=== PATIENT | female | born 1960 | race Caucasian/White ===

== ENCOUNTER 2021-01-15 13:46 | Outpatient (CLI) | payer BC, SELFPAY ==
--- NOTE | ~2021-01-15 | MM_ITS ---
EXAMINATION: MM screening [facility] BI w [place] HISTORY: Screening mammogram, family history of breast cancer in her sister. TECHNIQUE: Craniocaudal and mediolateral oblique 3-D tomosynthesis images were obtained and synthetic 2-D images were generated. CAD analysis was submitted and interpreted. COMPARISON: 05/29/2019, 10/11/2012, 07/11/2008 BREAST PARENCHYMAL COMPOSITION: There are scattered areas of fibroglandular density. FINDINGS: There is no evidence of suspicious mass, calcification, or architectural distortion to sugg est malignancy in either breast. There has been no suspicious interval change. IMPRESSION: 1. No mammographic evidence of malignancy. 2. Recommend routine screening mammography in one year. BI-RADS Category 1: Negative Reviewed, dictated and finalized at location A.
--- NOTE | ~2021-01-15 | US_ITS ---
EXAMINATION: US soft tissue LE LT DATE: 01/15/2021 14:20 INDICATION: Localized swelling, mass and lump at the left calf. TECHNIQUE: Multiple grayscale and Doppler ultrasound images of the region of concern at the left calf above the ankle were obtained. COMPARISON: None FINDINGS: At the region of concern is a bilobed lesion in the superficial subcutaneous fat. The larger more cep halad ovoid likely complex cystic component is peripherally hypoechoic, centrally anechoic and measur es 1.3 x 0.5 x 0.6 cm. There is no internal vascular flow on color Doppler. The smaller more caudal a nd hypoechoic component measuring 5 x 2 x 4 mm. An additional 1 cm more caudally there is a second ov oid hypoechoic likely solid lesion measuring 8 x 5 x 4 mm. IMPRESSION: 1. 3 nonspecific nodular lesions in the superficial subcutaneous fat at the region of concern the lar gest a 13 x 5 x 6 mm complex cystic lesion in the 2 smaller hypoechoic solid lesions measuring 5 mm a nd 8 mm in maximal diameters. There is a wide differential which would include epidermoid cysts or ne oplasm either benign or malignant. Reviewed, dictated and finalized at location A. IMPRESSION: 1. 3 nonspecific nodular lesions in the superficial subcutaneous fat at the reg ion of concern the largest a 13 x 5 x 6 mm complex cystic lesion in the 2 small er hypoechoic solid lesions measuring 5 mm and 8 mm in maximal diameters. There is a wide differential which would include epidermoid cysts or neoplasm either benign or malignant.
== END 2021-01-15 13:47 | disposition home or self-care (01) ==
LOC: CHSIMG 13:48
PROVIDERS: PCP Nurse Practitioner Family; Visit Provider Nurse Practitioner Family
DX: Z12.31 Encounter for screening mammogram for malignant neoplasm of breast (principal); M79.89 Other specified soft tissue disorders
CPT/HCPCS: 76882; 77063; 77067

== ENCOUNTER 2022-06-22 13:43 | Outpatient (CLI) | payer BC, SELFPAY ==
--- NOTE | ~2022-06-22 | XR_ITS ---
EXAM: XR knee RT 2V DATE: 06/22/2022 14:14 HISTORY: LT knee pain ant x 2wks, NKI . COMPARISON: 10/22/2013. FINDINGS: Decreased mineralization. No fracture or dislocation. No lytic or blastic lesion. Moderate medial joint space narrowing. Moderate tricompartmental osteophytosis. No erosion or periosteal heller ge. Soft tissues within normal limits. IMPRESSION: Moderate tricompartmental osteoarthritis of the right knee. Reviewed, dictated and finalized at location K.
--- NOTE | ~2022-06-22 | XR_ITS ---
XR knee LT 2V DATE: 06/22/2022 14:12 INDICATION: Anterior and posterior right knee pain for 2 weeks. No known injury. Prior patellar fract ure 50 years ago TECHNIQUE: AP and lateral views COMPARISON: None FINDINGS: There is mild narrowing of the medial compartment joint space with periarticular spurring. There is mild periarticular spurring of the patella. No fracture or dislocation or joint effusion. No periosteal reaction or bone destruction. No radiopaq ue intra-articular loose body or chondrocalcinosis. IMPRESSION: Mild osteoarthritis at the medial and patellofemoral compartments Reviewed, dictated and finalized at location B.
== END 2022-06-22 13:44 | disposition home or self-care (01) ==
LOC: CHSIMG 13:45
PROVIDERS: PCP Nurse Practitioner Family; Visit Provider Nurse Practitioner Family
DX: M25.561 Pain in right knee (principal); M25.562 Pain in left knee
CPT/HCPCS: 73560

== ENCOUNTER 2022-12-29 16:36 | Outpatient (CLI) | payer BC, SELFPAY ==
[2022-12-29 16:56] LABS: Basophils Absolute Auto 0.07 K/mm3 (0.00-0.10); Basophils Percent Auto 0.8 % (0.0-1.0); Eosinophils Absolute Auto 0.17 K/mm3 (0.02-0.50); Eosinophils Percent Auto 1.9 % (1.0-6.0); Hematocrit 40.1 % (35.0-49.0); Hemoglobin 12.7 g/dL (12.0-15.0); Immature Granulocyte Absolute 0.03 K/mm3 (0.00-0.00); Immature Granulocyte Percent A 0.3 % (0.0-0.0); Lymphocytes Absolute Auto 3.04 K/mm3 (1.10-4.50); Lymphocytes Percent Auto 33.7 % (18.0-42.0); Mean Corpuscular HGB Conc 31.7 g/dL (32.0-36.0); Mean Corpuscular Hemoglobin 29.3 pg (27.0-31.0); Mean Corpuscular Volume 92.4 fL (78.0-102.0); Mean Platelet Volume 10.3 fl (9.2-11.8); Monocytes Absolute Auto 0.51 K/mm3 (0.10-0.90); Monocytes Percent Auto 5.7 % (2.0-11.0); Neutrophils Absolute Auto 5.2 K/mm3 (1.7-7.2); Neutrophils Percent Auto 57.6 % (50.0-70.0); Platelet Count Result 351 K/mm3 (150-420); Red Blood Count 4.34 M/mm3 (4.20-5.40); Red Cell Distribution Width 13.2 % (11.6-14.4)
[2022-12-29 16:59] LABS: Appearance Urine Clear (Clear); Bilirubin Urine Negative (Negative); Blood Urine Negative (Negative); Color Urine Light Yellow (Yellow); Glucose Urine UA Negative (Negative); Ketones Urine Negative (Negative); Leukocyte Esterase Ur 1+ LEU/UL (Negative); Nitrate Urine Negative (Negative); Protein Urine Negative (Negative); Urobilinogen Urine 0.2 mg/dL (0.2-1.0); pH Urine 5.5 (5.0-8.0)
[2022-12-29 17:04] LABS: Add Urine Microscopic? YES; Bacteria Urine 1+ /hpf; RBC Urine None seen /hpf (0-2); Squamous Epithelial Cell Urine Few /hpf (Few)
[2022-12-29 17:28] LABS: Alanine Aminotransferase 32 U/L (14-59); Albumin Level 4.2 g/dL (3.4-5.0); Alkaline Phosphatase 116 U/L (46-116); Amylase 36 U/L (25-115); Anion Gap 11 mmol/L (8-16); Aspartate Amino Transferase 18 U/L (15-37); Bilirubin,Total 0.4 mg/dL (0.00-1.00); Blood Urea Nitrogen 18 mg/dL (7-18); Carbon Dioxide 29 mmol/L (21-32); Chloride 105 mmol/L (98-108); Estimated Glomerular Filt Rate 60; Glucose 107 mg/dL (70-99); Lipase 30 U/L (16-77); Osmolality Calculated 301 mOsm/kg (285-295); Potassium 3.6 mmol/L (3.5-5.1); Sodium 145 mmol/L (136-145); Total Protein 7.6 g/dL (6.4-8.2)
[2022-12-29 17:33] LABS: Calcium 9.3 mg/dL (8.5-10.1)
== END 2022-12-29 16:37 | disposition home or self-care (01) ==
LOC: CHSLAB 16:38
PROVIDERS: PCP Nurse Practitioner Family; Visit Provider Nurse Practitioner Family
DX: R10.11 Right upper quadrant pain (principal); R82.90 Unspecified abnormal findings in urine
CPT/HCPCS: 36415; 80053; 81001; 82150; 83690; 85025; 87086

== ENCOUNTER 2022-12-30 12:58 | Outpatient (CLI) | payer BC, SELFPAY ==
--- NOTE | ~2022-12-30 | XR_ITS ---
XR abdomen/kub 1V DATE: 12/30/2022 13:17 INDICATION: Right upper quadrant abdominal pain for 2 weeks. Loose bowels. TECHNIQUE: 2 supine AP views of abdomen and pelvis COMPARISON: None FINDINGS: Surgical clips, right upper quadrant, consistent with cholecystectomy. The psoas shadows are intact. No visceromegaly is evident. There is a moderate amount of fecal material in the rectum and colon but no bowel obstruction. Moderately prominent degenerative disc disease at L2-3. Included skeletal structures are otherwise un remarkable. IMPRESSION: Status post cholecystectomy Moderate fecal material in the rectum and colon; no bowel obstruction Reviewed, dictated and finalized at Location A. Reviewed, dictated and finalized at location L. [employer]
== END 2022-12-30 12:59 | disposition home or self-care (01) ==
LOC: CHSIMG 13:01
PROVIDERS: PCP Nurse Practitioner Family; Visit Provider Nurse Practitioner Family
DX: R10.11 Right upper quadrant pain (principal); Z90.49 Acquired absence of other specified parts of digestive tract
CPT/HCPCS: 74018

== ENCOUNTER 2025-07-10 14:22 | Outpatient (CLI) | payer MEDICARE, SELFPAY ==
--- NOTE | ~2025-07-10 | XR_ITS ---
EXAMINATION: XR humerus LT, 07/10/2025 14:30 CDT HISTORY: S49.92XA - Unspecified injury of left shoulder and upper ... COMPARISON: No comparisons available. Findings: No acute fracture or malalignment. No significant degenerative changes. Soft tissues unremarkable. Impression: No acute fracture or malalignment. Reviewed, dictated and finalized at location A. Impression: No acute fracture or malalignment.
--- NOTE | ~2025-07-10 | XR_ITS ---
EXAMINATION: XR shoulder LT min 2V, 07/10/2025 14:30 CDT HISTORY: M25.512 - Pain in left shoulder COMPARISON: No comparisons available. Findings: No acute fracture or malalignment. No significant degenerative changes. Soft tissues unremarkable. Impression: No acute fracture or malalignment. Reviewed, dictated and finalized at location A. Impression: No acute fracture or malalignment.
== END 2025-07-10 14:23 | disposition home or self-care (01) ==
LOC: CHSIMG 14:25
PROVIDERS: PCP Nurse Practitioner Family; Visit Provider Nurse Practitioner Family
DX: M25.512 Pain in left shoulder (principal); S49.92XA Unspecified injury of left shoulder and upper arm, initial encounter
CPT/HCPCS: 73030; 73060